=== PATIENT | male | born 1955 | race Caucasian/White ===

== ENCOUNTER 2016-10-17 12:29 | Inpatient (IN) | payer MEDICARE, OTHER ==
--- NOTE | ~2016-10-17 | IDS ---
Interim Discharge Summary [facility] [address] [place]. [address] NAME: NATHALY LOPEZ : 55 STATUS : ADM IN [facility]#: [id number] AGE: 61 ADM/REG DATE : 10/17/16 MR#: [id number] REPORT SERV DATE: 10/27/16 DICTATED BY: JULIA RUIZ DATE: 10/27/16 REPORT STATUS : Draft TRANSCRIBED BY: MODRoni DATE: 10/27/16 ADMISSION DATE: 10/17/2016 DISCHARGE DATE: Date that I assumed care of this patient is 10/22/2016. CONDITION OF THE PATIENT: Stable. The patient is awaiting PT/OT evaluation so that he can be transferred to [facility] whenever bed is available if PT/OT agrees with the patient being in inpatient rehab. DIAGNOSES: So far include the followin. Bilateral lower extremity cellulitis, right leg is worse than left leg. The patient does have open sores in both legs, but has open sores which are worse in the right leg compared to the left leg. The patient also has two small areas of superficial gangrene in the right foot. 2. The patient does have severe PVD in both the legs and has undergone angioplasty in both legs with return of circulation, and there is a good pedal pulse felt in both lower extremities now. 3. Wound culture positive for Pseudomonas aeruginosa from the leg wound for which the patient is on IV cefepime and vancomycin. The patient completes vancomycin day #10 today hence we will stop that. So, the plan is to continue IV cefepime for five more days so that he gets a total of two weeks of coverage for Pseudomonas with IV cefepime. The patient already has a PICC line. 4. Cardiomyopathy, status post AICD/pacer. This is stable. His ejection fraction is 30% and Cardiology has been following him. So far, he is doing well with Bumex 2 mg once a day. Carvedilol 3.125 mg p.o. b.i.d. 5. Paroxysmal atrial fibrillation-the patient is on Coumadin and his Coumadin was recently restarted at his home dose of 5 mg once a day. His most recent INR that I have is 1.5. INR today, 10/27/2016, is pending. 6. Chronic kidney disease, stage 3, which is stable and his baseline creatinine stays around 1.4 to 1.5. 7. Diabetes mellitus-fairly well controlled and blood glucose levels are doing well with the current insulin dose. The patient is on Levemir 20 units subcu q.h.s. and sliding scale insulin level 3 with Accu-Cheks a.c. and h.s. BRIEF HOSPITAL COURSE: During which I have taken care of this patient include the following. The patient is a 61-year-old white male patient, who was admitted with signs and symptoms as diagnosed in his history and physical exam. When I took over care of this patient, the patient was already started on antibiotics for his bilateral severe lower extremity cellulitis with cefepime and vancomycin. Wound cultures were pending. Vascular Surgery had already been consulted and had already performed angioplasty on this gentleman. When I took over care and examined both his legs, he continued to have a good pedal pulse after the procedure in both legs. His right leg cellulitis was worse and has always been than the left leg. The patient continues to have two superficial areas of gangrenous necrosis of the superficial skin and subcutaneous tissue only on the right foot. To know the extent of Interim Discharge Summary [address] [address] NAME: NATHALY LOPEZ : 55 STATUS : ADM IN [facility]#: [id number] AGE: 61 ADM/REG DATE : 10/17/16 MR#: [id number] REPORT SERV DATE: 10/27/16 DICTATED BY: JULIA RUIZ DATE: 10/27/16 REPORT STATUS : Draft TRANSCRIBED BY: SANTANA DATE: 10/27/16 disease in the right foot and leg, I ordered a CT scan of the right foot and leg. The patient cannot have an MRI because he has an AICD/pacer in place that is MRI not compatible. CT scan of the right foot showed soft tissue swelling only and no evidence of any bone involvement or any deep seated abscess at this time luckily. Hence, the plan on this gentleman is to transfer him on to an inpatient rehab at [facility] per his preference whenever bed is available. PT and OT are evaluating him today. As mentioned above, the patient will need IV cefepime for five more days so that he gets a total of two weeks of IV cefepime to cover the Pseudomonas in the lower extremity wounds. This is my discharge summary and my colleague will be taking over care of this patient on 10/28/2016. DAVE/SANTANA Julia Ruiz M.D. / [id number] CC: Rodolfo Lei ERIN
--- NOTE | ~2016-10-17 | OP ---
Record Of Operation [facility] [address] [place]. [address] NAME: NATHALY LOPEZ : 55 STATUS : ADM IN [facility]#: [id number] AGE: 61 ADM/REG DATE : 10/17/16 MR#: [id number] REPORT SERV DATE: 10/20/16 DICTATED BY: SARWAT DARBY DATE: 10/20/16 REPORT STATUS : Draft TRANSCRIBED BY: MODL DATE: 10/20/16 DATE OF PROCEDURE: 10/20/2016 PREOPERATIVE DIAGNOSIS: Peripheral arterial disease with gangrene, right leg. POSTOPERATIVE DIAGNOSIS: Peripheral arterial disease with gangrene, right leg. PROCEDURE: 1. Aortogram with right leg runoff. 2. Angioplasty, right SFA popliteal. 3. Angioplasty, right anterior tibial and peroneal arteries. SURGEON: Sarwat Darby M.D. ANESTHESIA: Local with sedation. COMPLICATIONS: None. BLOOD LOSS: Minimal. HISTORY: The patient is a 61-year-old male with multiple medical issues. He has developed ulcerations from swelling in his lower extremities. This have developed dry gangrene on the right due to poor blood flow. Thought he would benefit from arteriogram with intervention to hopefully improve perfusion and achieve healing. This was discussed in detail with the patient. He expressed understanding and desired to proceed. DESCRIPTION OF PROCEDURE: The patient was taken to the operating room and placed in the supine position. He was given IV sedation without complication. Both groins were prepped and draped in sterile fashion. Ultrasound was used to identify the common femoral artery on the left. Lidocaine 1% was infiltrated in the skin and subcutaneous tissues. Under ultrasound guidance, an 18-gauge needle was placed in the common femoral artery. Wire was passed into the aorta which confirmed with fluoroscopy. The needle was removed. A 5-Citizen Of [place] sheath was placed. UF catheter was passed with the wire into the aorta. Aortogram shows an aortobifemoral bypass graft, which was widely patent. The left renal artery was seen and was patent as well. The right renal artery was not well visualized. Wire was placed in the catheter. Catheter was placed into the distal aortobifemoral limb on the right. Arteriogram here shows a patent limb, patent common femoral and profunda femoral artery. The superficial femoral artery has a stump and then occludes. The profunda femoral artery fills collaterals into the thigh. With significant delay, there was filling of what appears to be the popliteal artery above the knee, which then fills vessels below the knee. The patient was on a heparin drip, which was continued throughout the case. The wire was guided in the profunda femoral artery. The sheath was exchanged for a 6 x 45 sheath, which was in the limb of the aortobifemoral bypass graft. With some effort, a glidewire and 0.035 TrailBlazer catheter were able to cross the occlusion of the SFA popliteal and the select arteriogram through the catheter shows filling of what appears to be the popliteal into multiple collaterals. The wire was left in place and a 4 x 100 balloon used to angioplasty Record Of Operation [place] [id number] [facility] [place]. [address] NAME: NATHALY LOPEZ : 55 STATUS : ADM IN PAT#: [id number] AGE: 61 ADM/REG DATE : 10/17/16 MR#: [id number] REPORT SERV DATE: 10/20/16 DICTATED BY: SARWAT DARBY DATE: 10/20/16 REPORT STATUS : Draft TRANSCRIBED BY: SANTANA DATE: 10/20/16 the length of the SFA popliteal. Prior to this, arteriogram shows a collaterals filling in the tibial vessels, which all three are patent to the ankle. After intervention with a 4-mm balloon, an 0.018 TrailBlazer was passed over an 0.018 wire to the above-knee popliteal artery. Arteriogram showed it to be patent with stenosis. The collaterals fill prominently, however, there was some filling of the below-knee popliteal artery towards the anterior tibial artery. With some efforts and additional imaging, the anterior tibial artery was able to be accessed, which was confirmed with arteriogram through the 0.018 catheter. A 3 x 220 balloon was then used to angioplasty from the origin of the anterior tibial artery into the popliteal artery. The below-knee popliteal artery in anterior tibial origin was angioplastied with a 4-mm balloon. A 5 x 220 mm balloon was used to angioplasty from the knee joint to the SFA origin. Post arteriogram shows resistive flow throughout the SFA popliteal, which was patent. Stenosis was seen in the adductor canal, and this was intervened once again with a 5-mm balloon as was stenosis noted just above the knee joint. Arteriogram with the balloon inflated, shows the below-knee popliteal artery to be patent filling the anterior tibial artery, which was patent and he appears to have spasm. Arteriogram after the repeat intervention shows a stenosis in the popliteal artery above the knee to be resolved as was the stenosis at the adductor canal. Due to no filling in the peroneal, posterior tibial, and tibioperoneal trunk, an 0.018 trailblazer with the help of the wire was guided into the tibioperoneal trunk. Select arteriogram showed the vessel to be patent still. Wire was guided into the peroneal artery and the 3-mm balloon used to angioplasty from the peroneal artery through the tibioperoneal trunk. Post arteriogram now shows a widely patent below-knee popliteal artery with prompt flow through the posterior tibial, peroneal arteries and there was still some flow into the anterior tibial artery as well. With injection through the sheath, there was prompt flow through the popliteal artery above and below the knee and into the tibial vessels, which was a significant improvement as it fills faster than the collaterals. This was felt to be an excellent result. The sheath was removed. Access was closed with StarClose device without difficulty. The patient tolerated the procedure well and was taken to the recovery room and back to his room for continued care. BREE/SANTANA Sarwat Darby M.D. / [id number] CC: MD MARK Gary ERIN
--- NOTE | ~2016-10-17 | DS ---
Discharge Summary [facility] [address] [place]. [address] NAME: NATHALY LOPEZ : 55 STATUS : DIS IN [facility]#: [id number] AGE: 61 ADM/REG DATE : 10/17/16 MR#: [id number] REPORT SERV DATE: 10/31/16 DICTATED BY: TAL GAYTAN DATE: 10/30/16 REPORT STATUS : Draft TRANSCRIBED BY: SANTANA DATE: 10/30/16 ADMISSION DATE: 10/17/2016 DISCHARGE DATE: 10/30/2016 DISCHARGE DIAGNOSES: 1. Severe sepsis. 2. Bilateral lower extremity cellulitis. 3. Severe peripheral vascular disease, status post angioplasty with successful stent placement to the right SFA popliteal and right anterior tibia and peroneal arteries. 4. Ischemic cardiomyopathy status post history of AICD/pacer. 5. Paroxysmal atrial fibrillation, on chronic anticoagulation with Coumadin. 6. Chronic kidney disease stage 3, baseline creatinine between 1.2 to 1.5. 7. Diabetes mellitus type 2. 8. Hypertension. 9. Anasarca. 10.History of recurrent left pleural effusion. 11.Acute decompensated heart failure with reduced EF 30%. 12.History of coronary artery disease, status post history of four-vessel coronary artery bypass graft surgery. 13.Supratherapeutic INR. 14.Acute kidney injury. DISCHARGE CONDITION: Stable. HISTORY OF PRESENT ILLNESS: For detailed HPI, please make reference to Dr. Ismael Weinstein' dictation on 10/15/2016. In brief, this is a 61-year-old male with medical history significant for ischemic cardiomyopathy, status post AICD placement, congestive heart failure, peripheral vascular disease who presented to the emergency department of [facility] with complaints of increased generalized body swelling, sores on the lower extremities, and worsening shortness of breath. In the ER, the patient [place] [address], BNP of 2230, INR of 15, creatinine of 2.16. An assessment of severe sepsis secondary to bilateral lower extremity cellulitis, acute decompensated heart failure with volume overload, acute kidney injury on chronic kidney disease, and supratherapeutic INR was made in the emergency room. The patient was admitted to the Hospitalist Service for further management. HOSPITAL COURSE: Severe sepsis secondary to bilateral lower extremity cellulitis. Blood cultures were obtained. Wound cultures were obtained. The patient was started on broad- spectrum antibiotics. The patient's blood cultures yielded no growth. Wound cultures came back positive for Pseudomonas aeruginosa and Stenotrophomonas maltophilia. The patient's antibiotics were narrowed down based on the sensitivity. The patient received a total of 14 days IV antibiotics therapy during the course of this admission. At the time of discharge, the patient was advised to continue wound care at the skilled nursing facility. Anasarca due to acute decompensated heart failure. The patient received gentle IV diuretics during the course of this admission. The patient's generalized body swelling improved. The Discharge Summary [place] [id number] [facility] [place]. [address] NAME: NATHALY LOPEZ : 55 STATUS : DIS IN [facility]#: [id number] AGE: 61 ADM/REG DATE : 10/17/16 MR#: [id number] REPORT SERV DATE: 10/31/16 DICTATED BY: TAL GAYTAN DATE: 10/30/16 REPORT STATUS : Draft TRANSCRIBED BY: SANTANA DATE: 10/30/16 patient still has some persistent lower extremity swelling. The patient will continue p.o. diuretics and continue followup with primary care physician. Acute kidney injury on chronic kidney disease secondary to prerenal azotemia, present during the evaluation of the patient in the ER, likely related to patient's hypotension on presentation. The patient had gentle IV fluids initially. The patient's creatinine improved. At the time of discharge, the patient's creatinine had returned back to baseline of 1.5. The patient was advised to continue follow up with Nephrology. Supratherapeutic INR. The patient's INR was 15 on presentation. The patient received IV vitamin K. The patient's INR gradually trended down. The patient's warfarin was initially held. When the patient's INR returned back to within therapeutic range, the patient's warfarin was resumed. The patient's INR gradually improved and remained stable at 2.0. The patient was advised to continue warfarin and follow up with INR monitoring at the prison facility. History of paroxysmal atrial fibrillation. The patient had no evidence of RVR throughout the course of this admission. The patient's INR was strictly monitored during the course of this admission. The patient was advised to continue Coreg 3.125 for rate control and warfarin for chronic anticoagulation. Recurrent left pleural effusion noted on presentation. With IV diuretics, left pleural effusion improved. The patient remained stable. The patient's shortness of breath significantly improved. The patient did not undergo thoracentesis during this admission as pleural effusion has remained stable. Previous tap from pleural effusion showed evidence of transudative likely due to acute decompensated heart failure. Diabetes mellitus. The patient's blood sugar was controlled with subcu insulin throughout the course of this admission. At the time of discharge, the patient was advised to continue home dose therapy of insulin as ordered. Severe peripheral arterial disease. Vascular Surgery was consulted during the course of this admission. The patient underwent stent placement as dictated above with good pulse return at the time of discharge. The patient had a palpable pulse post surgery. No significant complication noted after surgery during this admission. DISCHARGE MEDICATIONS: 1. Aspirin 81 mg p.o. daily. 2. Lipitor 40 mg p.o. at bedtime. 3. Kayleigh cream 2 ounce applied to top twice a day. 4. Bumex 2 mg p.o. daily. 5. Coreg 3.125 mg p.o. b.i.d. 6. Insulin glargine 300 units pen 40 units subcu at bedtime. 7. Trazodone 50 mg p.o. at bedtime. 8. Warfarin 5 mg p.o. daily. 9. Humalog 8 units subcu before breakfast. 10.Roxicodone 5 mg p.o. every 4 hours. Discharge Summary [address] [address] NAME: NATHALY LOPEZ : 55 STATUS : DIS IN PAT#: [id number] AGE: 61 ADM/REG DATE : 10/17/16 MR#: [id number] REPORT SERV DATE: 10/31/16 DICTATED BY: TAL GAYTAN DATE: 10/30/16 REPORT STATUS : Draft TRANSCRIBED BY: SANTANA DATE: 10/30/16 11.Lorazepam 0.5 mg p.r.n. 12.Atrovent 2.5 mg one inhaler nebs 4 times p.r.n. 13.Albuterol 0.083% p.r.n. DISCHARGE ACTIVITY: As tolerated. DISCHARGE DISPOSITION: To prison facility at [place]. FOLLOWUP: 1. Follow up with primary care physician within one to two weeks of discharge. 2. Continue followup with Nephrology. 3. Continue followup with Cardiology within three to four weeks of discharge. Greater than 35 minutes was used to prepare this patient's discharge, reconcile medication, advise the patient on discharge plans and followup. IOO/WILLIL Tal Gaytan MD / [id number] CC: MD Lyn Gary
[~2016-10-17 12:29] MED LIST: ADVAIR230P INH; ALBUTEROL0.083 % INH; ASAB PO; ATROVENTUD; ATROVENTUD INH; ATV.5 PO; BUM1 PO; BUM2 PO; C25 PO; C5; C5 PO; CIP5 PO; COREG3 PO; COREG6 PO; COUMADIN10 MG; COUMADIN10 MG PO; COUMADIN4 MG PO; COUMADIN7.5 MG PO; DIABET2.5 PO; DIABETA5 PO; DUONEB INH; FLOMAX4 PO; GLUCXL2.5 PO; HUMALOG; HUMALOG SC; HUMALOG SQ; HUMALOGPEN SC; I40 PO; IMDUR30 PO; ISOSORB DIN30 MG PO; K-TABS10 MEQ PO; KDUR10 PO; KDUR20 PO; L20 PO; L40 PO; L80 PO; LEVEMIR SC; LIPITOR40 PO; LOFIB160 PO; LOFIBRA134 MG PO; LOTE10 PO; LOTE5 PO; LOVENOX60 SC; MAGOX4 PO; MULTIVITAMI1 PO; MVI PO; NOVOLOGMIX SC; OXYCOD PO; P10 PO; PCET PO; PLAVIX PO; PRAVAC PO; PRAVACHOL40 MG PO; PRILO PO; PROAIR HFA INH; PROSTAT PO; SPIRO25 PO; SPIRO50 PO; SYMBICORT 160/41 INH INH; TOUJEO; TOUJEO SC; TOUJEO SQ; TRAZ50 PO; TRILIPIX135 MG; TRILIPIX135 MG PO; VITAMIN C100 M1 PO; VITC500 PO; ZINC220C PO
[2016-10-17 15:28] LABS: BASOPHILS 0.1 %; BASOPHILS ABSOLUTE 0.02 10/3/uL (0.0-0.16); EOSINOPHILS 0.2 %; EOSINOPHILS ABSOLUTE 0.03 10/3/uL (0.0-0.53); HEMOGLOBIN 11.1 g/dL (13.6-17.8); IMMATURE GRANULOCYTES 3.5 %; IMMATURE GRANULOCYTES ABSOLUTE 0.57 10/3/uL (0.0-0.11); LYMPHOCYTES 5.3 %; LYMPHOCYTES ABSOLUTE 0.86 10/3/uL (0.67-4.30); MANUAL DIFF NO %; MEAN CORPUS HGB CONC 32.6 g/dL (32.0-36.0); MEAN CORPUSCULAR HEMOGLOB 25.7 pg (26.0-34.0); MEAN CORPUSCULAR VOLUME 78.7 fL (80-100); MEAN PLATELET VOLUME 8.8 fL (9.2-13.0); MONOCYTES 4.8 %; MONOCYTES ABSOLUTE 0.79 10/3/uL (0.21-1.20); NEUTROPHILS 86.1 %; NEUTROPHILS ABSOLUTE 14.06 10/3/uL (2.02-8.40); PLATELET COUNT 116 10/3/uL (150-400); RBC DISTRIBUTION WIDTH 16.8 % (12.0-16.0); RED CELL COUNT 4.32 10/6/uL (4.7-6.1); WHITE BLOOD CELLS 16.3 10/3/uL (4.5-10.5)
[2016-10-17 15:35] LABS: INTERNATIONAL NORMAL RATI 3.4 UNITS (-); PARTIAL THROMBO TIME 38.6 SEC (22.5-37.2); PROTIME (NOT ORD) 34.3 SEC (12.0-14.5)
[2016-10-17 15:41] LABS: BUN (BLOOD UREA NITROGEN) 72 MG/DL (6-23); CALCIUM, SERUM 7.9 MG/DL (8.5-10.4); CHLORIDE, SERUM 100 MMOL/L (96-112); CO2 (CARBON DIOXIDE) 30 MMOL/L (24-34); GFR AFRICAN AMERICAN 43 ML/MIN (>=60); GFR NON AFRICAN AMERICAN 37 ML/MIN (>=60); PHOSPHORUS, SERUM 3.4 MG/DL (2.5-4.5); POTASSIUM, SERUM 3.9 MMOL/L (3.5-5.3); SGOT(AST) 12 U/L (5-40); SGPT(ALT) 12 U/L (5-65); SODIUM, SERUM 138 MMOL/L (135-148); TOTAL BILIRUBIN 1.1 MG/DL (0-1.2); TOTAL PROTEIN 5.2 G/DL (6.0-8.5)
[2016-10-17 15:42] LABS: A/G RATIO 0.7 (0.7-1.9); ALBUMIN 2.1 G/DL (3.5-5.0); ALKALINE PHOSPHATASE 164 U/L (45-117); GLOBULIN 3.1 G/DL (2.5-4.1); GLUCOSE, SERUM 52 MG/DL (60-99)
[2016-10-17 15:58] LABS: ANISOCYTOSIS 1+ (5-10/OIF) (0-5/OIF); BAND NEUTROPHILS 6 %; BURR CELLS 1+ (3-10/OIF) (0-2/OIF); HYPOCHROMIA 1+ (3-10/OIF) (0-2/OIF); LYMPHOCYTES 3 %; LYMPHOCYTES ABSOLUTE (CALC) 0.49 10/3/uL (0.67-4.30); NEUTROPHILS ABSOLUTE (CALC) 15.81 10/3/uL (2.02-8.40); PLATELET ESTIMATE SLT DEC (ADEQUATE); SEGMENTED NEUTROPHIL (0) 91 %; TOTAL NUCLEATED CELLS 100
[2016-10-17 15:59] LABS: MACROCYTES 1+ (5-10/OIF) (0-5/OIF); MICROCYTES 1+ (5-10/OIF) (0-5/OIF); OVALOCYTES 1+ (3-10/OIF) (0-2/OIF); TEARDROP SHAPED RBCS OCC (0-2/OIF)
[2016-10-17 16:06] LABS: PROCALCITONIN 2.27 ng/mL (<0.5)
[2016-10-18 04:57] LABS: HEMATOCRIT 37.1 % (40.0-51.0); HEMOGLOBIN 12.1 g/dL (13.6-17.8); MEAN CORPUS HGB CONC 32.6 g/dL (32.0-36.0); MEAN CORPUSCULAR HEMOGLOB 25.9 pg (26.0-34.0); MEAN CORPUSCULAR VOLUME 79.4 fL (80-100); MEAN PLATELET VOLUME 8.7 fL (9.2-13.0); PLATELET COUNT 137 10/3/uL (150-400); RED CELL COUNT 4.67 10/6/uL (4.7-6.1); WHITE BLOOD CELLS 16.7 10/3/uL (4.5-10.5)
[2016-10-18 05:01] LABS: MANUAL DIFF YES %
[2016-10-18 05:18] LABS: A/G RATIO 0.5 (0.7-1.9); ALBUMIN 1.7 G/DL (3.5-5.0); CHLORIDE, SERUM 102 MMOL/L (96-112); CO2 (CARBON DIOXIDE) 29 MMOL/L (24-34); GFR AFRICAN AMERICAN 49 ML/MIN (>=60); GFR NON AFRICAN AMERICAN 43 ML/MIN (>=60); GLOBULIN 3.2 G/DL (2.5-4.1); PHOSPHORUS, SERUM 3.3 MG/DL (2.5-4.5); SGOT(AST) 11 U/L (5-40); SGPT(ALT) 10 U/L (5-65); SODIUM, SERUM 141 MMOL/L (135-148); TOTAL BILIRUBIN 1.1 MG/DL (0-1.2); TOTAL PROTEIN 4.9 G/DL (6.0-8.5)
[2016-10-18 05:27] LABS: ANISOCYTOSIS 1+ (5-10/OIF) (0-5/OIF); BAND NEUTROPHILS 2 %; IMMATURE GRANS ABSOLUTE (CALC) 0.33 10/3/uL (0.0-0.11); LYMPHOCYTES 4 %; LYMPHOCYTES ABSOLUTE (CALC) 0.67 10/3/uL (0.67-4.30); METAMYELOCYTES 2 %; PLATELET ESTIMATE SLT DEC (ADEQUATE); SEGMENTED NEUTROPHIL (0) 92 %; TOTAL NUCLEATED CELLS 100
[2016-10-18 05:28] LABS: ALKALINE PHOSPHATASE 185 U/L (45-117); BUN (BLOOD UREA NITROGEN) 65 MG/DL (6-23); GLUCOSE, SERUM 94 MG/DL (60-99)
[2016-10-18 14:34] LABS: INTERNATIONAL NORMAL RATI 3.9 UNITS (-); PARTIAL THROMBO TIME 53.5 SEC (22.5-37.2); PROTIME (NOT ORD) 37.7 SEC (12.0-14.5)
[2016-10-19 04:36] LABS: HEMOGLOBIN 11.9 g/dL (13.6-17.8); MEAN CORPUS HGB CONC 33.1 g/dL (32.0-36.0); MEAN CORPUSCULAR HEMOGLOB 26.3 pg (26.0-34.0); MEAN CORPUSCULAR VOLUME 79.5 fL (80-100); MEAN PLATELET VOLUME 8.8 fL (9.2-13.0); PLATELET COUNT 159 10/3/uL (150-400); RBC DISTRIBUTION WIDTH 16.8 % (12.0-16.0); RED CELL COUNT 4.53 10/6/uL (4.7-6.1); WHITE BLOOD CELLS 18.5 10/3/uL (4.5-10.5)
[2016-10-19 04:37] LABS: MANUAL DIFF YES %
[2016-10-19 05:03] LABS: ANISOCYTOSIS 1+ (5-10/OIF) (0-5/OIF); EOSINOPHILS 1 %; EOSINOPHILS ABSOLUTE (CALC) 0.19 10/3/uL (0.0-0.53); IMMATURE GRANS ABSOLUTE (CALC) 0.37 10/3/uL (0.0-0.11); LYMPHOCYTES 8 %; LYMPHOCYTES ABSOLUTE (CALC) 1.48 10/3/uL (0.67-4.30); MICROCYTES 1+ (5-10/OIF) (0-5/OIF); MONOCYTES 3 %; MONOCYTES ABSOLUTE (CALC) 0.56 10/3/uL (0.21-1.20); MYELOCYTES 2 %; NEUTROPHILS ABSOLUTE (CALC) 15.91 10/3/uL (2.02-8.40); SEGMENTED NEUTROPHIL (0) 86 %; TOTAL NUCLEATED CELLS 100
[2016-10-19 05:04] LABS: PLATELET ESTIMATE ADQ (ADEQUATE); RBC MORPHOLOGY ABN (NORMAL)
[2016-10-19 07:05] LABS: CHLORIDE, SERUM 110 MMOL/L (96-112); PHOSPHORUS, SERUM 2.6 MG/DL (2.5-4.5); SODIUM, SERUM 144 MMOL/L (135-148)
[2016-10-19 07:06] LABS: ALBUMIN 1.1 G/DL (3.5-5.0); BUN (BLOOD UREA NITROGEN) 51 MG/DL (6-23); CALCIUM, SERUM 6.3 MG/DL (8.5-10.4); CO2 (CARBON DIOXIDE) 23 MMOL/L (24-34); CREATININE 1.06 MG/DL (0.70-1.30); GFR AFRICAN AMERICAN 87 ML/MIN (>=60); GFR NON AFRICAN AMERICAN 75 ML/MIN (>=60); GLUCOSE, SERUM 134 MG/DL (60-99); POTASSIUM, SERUM 3.1 MMOL/L (3.5-5.3)
[2016-10-19 17:27] LABS: CREATININE, URINE 98.1 MG/DL
[2016-10-20 04:57] LABS: HEMOGLOBIN 11.2 g/dL (13.6-17.8); MEAN CORPUS HGB CONC 32.9 g/dL (32.0-36.0); MEAN CORPUSCULAR HEMOGLOB 25.9 pg (26.0-34.0); MEAN CORPUSCULAR VOLUME 78.7 fL (80-100); MEAN PLATELET VOLUME 8.4 fL (9.2-13.0); PLATELET COUNT 134 10/3/uL (150-400); RBC DISTRIBUTION WIDTH 16.9 % (12.0-16.0); RED CELL COUNT 4.32 10/6/uL (4.7-6.1); WHITE BLOOD CELLS 13.4 10/3/uL (4.5-10.5)
[2016-10-20 05:03] LABS: INTERNATIONAL NORMAL RATI 3.4 UNITS (-); PROTIME (NOT ORD) 33.7 SEC (12.0-14.5)
[2016-10-20 05:16] LABS: ALKALINE PHOSPHATASE 185 U/L (45-117); INDIRECT BILIRUBIN(NOT ORDER) 0.5 MG/DL (0.1-0.9); SGOT(AST) 14 U/L (5-40); SGPT(ALT) 15 U/L (5-65); TOTAL BILIRUBIN 0.9 MG/DL (0-1.2); TOTAL PROTEIN 5.1 G/DL (6.0-8.5)
[2016-10-20 05:19] LABS: DIRECT BILIRUBIN 0.4 MG/DL (0.0-0.4)
[2016-10-20 05:23] LABS: MANUAL DIFF YES %
[2016-10-20 05:44] LABS: BAND NEUTROPHILS 2 %; EOSINOPHILS 1 %; EOSINOPHILS ABSOLUTE (CALC) 0.13 10/3/uL (0.0-0.53); LYMPHOCYTES 10 %; LYMPHOCYTES ABSOLUTE (CALC) 1.34 10/3/uL (0.67-4.30); METAMYELOCYTES 1 %; MONOCYTES 2 %; MONOCYTES ABSOLUTE (CALC) 0.27 10/3/uL (0.21-1.20); MYELOCYTES 2 %; NEUTROPHILS ABSOLUTE (CALC) 11.26 10/3/uL (2.02-8.40); PLATELET ESTIMATE SLT DEC (ADEQUATE); SEGMENTED NEUTROPHIL (0) 82 %; TOTAL NUCLEATED CELLS 100
[2016-10-20 05:45] LABS: ANISOCYTOSIS 1+ (5-10/OIF) (0-5/OIF); RBC MORPHOLOGY ABN (NORMAL)
[2016-10-20 11:01] LABS: BUN (BLOOD UREA NITROGEN) 59 MG/DL (6-23); CALCIUM, SERUM 8.3 MG/DL (8.5-10.4); CHLORIDE, SERUM 101 MMOL/L (96-112); CO2 (CARBON DIOXIDE) 27 MMOL/L (24-34); CREATININE 1.31 MG/DL (0.70-1.30); GFR AFRICAN AMERICAN 68 ML/MIN (>=60); GFR NON AFRICAN AMERICAN 58 ML/MIN (>=60); GLUCOSE, SERUM 83 MG/DL (60-99); PHOSPHORUS, SERUM 2.5 MG/DL (2.5-4.5); POTASSIUM, SERUM 4.1 MMOL/L (3.5-5.3); SODIUM, SERUM 138 MMOL/L (135-148)
[2016-10-21 04:00] LABS: HEMOGLOBIN 9.1 g/dL (13.6-17.8); MEAN CORPUS HGB CONC 31.8 g/dL (32.0-36.0); MEAN CORPUSCULAR HEMOGLOB 25.7 pg (26.0-34.0); MEAN CORPUSCULAR VOLUME 80.8 fL (80-100); MEAN PLATELET VOLUME 8.4 fL (9.2-13.0); PLATELET COUNT 100 10/3/uL (150-400); RED CELL COUNT 3.54 10/6/uL (4.7-6.1); WHITE BLOOD CELLS 10.9 10/3/uL (4.5-10.5)
[2016-10-21 04:01] LABS: HEMATOCRIT 28.6 % (40.0-51.0); MANUAL DIFF YES %
[2016-10-21 04:14] LABS: INTERNATIONAL NORMAL RATI 4.8 UNITS (-)
[2016-10-21 04:15] LABS: CO2 (CARBON DIOXIDE) 24 MMOL/L (24-34); CREATININE 1.04 MG/DL (0.70-1.30); GFR AFRICAN AMERICAN 89 ML/MIN (>=60); GFR NON AFRICAN AMERICAN 77 ML/MIN (>=60); PROTIME (NOT ORD) 44.6 SEC (12.0-14.5)
[2016-10-21 04:16] LABS: PARTIAL THROMBO TIME > 150.0 SEC (22.5-37.2)
[2016-10-21 04:17] LABS: ALBUMIN 1.2 G/DL (3.5-5.0); BUN (BLOOD UREA NITROGEN) 42 MG/DL (6-23); CALCIUM, SERUM 6.2 MG/DL (8.5-10.4); CHLORIDE, SERUM 90 MMOL/L (96-112); GLUCOSE, SERUM 272 MG/DL (60-99); PHOSPHORUS, SERUM 4.1 MG/DL (2.5-4.5); POTASSIUM, SERUM 2.9 MMOL/L (3.5-5.3); SODIUM, SERUM 127 MMOL/L (135-148)
[2016-10-21 04:22] LABS: ANISOCYTOSIS 1+ (5-10/OIF) (0-5/OIF); BAND NEUTROPHILS 1 %; EOSINOPHILS 1 %; EOSINOPHILS ABSOLUTE (CALC) 0.11 10/3/uL (0.0-0.53); HYPOCHROMIA 1+ (3-10/OIF) (0-2/OIF); LYMPHOCYTES 1 %; LYMPHOCYTES ABSOLUTE (CALC) 0.11 10/3/uL (0.67-4.30); MONOCYTES 3 %; MONOCYTES ABSOLUTE (CALC) 0.33 10/3/uL (0.21-1.20); NEUTROPHILS ABSOLUTE (CALC) 10.36 10/3/uL (2.02-8.40); PLATELET ESTIMATE SLT DEC (ADEQUATE); SEGMENTED NEUTROPHIL (0) 94 %; TOTAL NUCLEATED CELLS 100
[2016-10-22 05:25] LABS: BASOPHILS 0.1 %; BASOPHILS ABSOLUTE 0.02 10/3/uL (0.0-0.16); EOSINOPHILS 1.1 %; EOSINOPHILS ABSOLUTE 0.17 10/3/uL (0.0-0.53); HEMATOCRIT 33.5 % (40.0-51.0); HEMOGLOBIN 10.8 g/dL (13.6-17.8); IMMATURE GRANULOCYTES 1.9 %; LYMPHOCYTES 5.9 %; LYMPHOCYTES ABSOLUTE 0.92 10/3/uL (0.67-4.30); MANUAL DIFF NO %; MEAN CORPUS HGB CONC 32.2 g/dL (32.0-36.0); MEAN CORPUSCULAR HEMOGLOB 25.8 pg (26.0-34.0); MEAN CORPUSCULAR VOLUME 80.1 fL (80-100); MEAN PLATELET VOLUME 8.9 fL (9.2-13.0); MONOCYTES 4.8 %; MONOCYTES ABSOLUTE 0.74 10/3/uL (0.21-1.20); NEUTROPHILS 86.2 %; NEUTROPHILS ABSOLUTE 13.38 10/3/uL (2.02-8.40); PLATELET COUNT 128 10/3/uL (150-400); RED CELL COUNT 4.18 10/6/uL (4.7-6.1); WHITE BLOOD CELLS 15.5 10/3/uL (4.5-10.5)
[2016-10-22 05:39] LABS: INTERNATIONAL NORMAL RATI 1.8 UNITS (-)
[2016-10-22 05:40] LABS: PROTIME (NOT ORD) 20.3 SEC (12.0-14.5)
[2016-10-22 05:53] LABS: CO2 (CARBON DIOXIDE) 28 MMOL/L (24-34); GFR AFRICAN AMERICAN 68 ML/MIN (>=60); GFR NON AFRICAN AMERICAN 59 ML/MIN (>=60); GLUCOSE, SERUM 231 MG/DL (60-99); POTASSIUM, SERUM 4.5 MMOL/L (3.5-5.3)
[2016-10-22 05:58] LABS: BUN (BLOOD UREA NITROGEN) 53 MG/DL (6-23); CALCIUM, SERUM 7.5 MG/DL (8.5-10.4); CHLORIDE, SERUM 100 MMOL/L (96-112); SODIUM, SERUM 135 MMOL/L (135-148)
[2016-10-22 07:53] LABS: PHOSPHORUS, SERUM 1.7 MG/DL (2.5-4.5)
[2016-10-23 03:27] LABS: HEMATOCRIT 32.8 % (40.0-51.0); HEMOGLOBIN 10.6 g/dL (13.6-17.8); MANUAL DIFF YES %; MEAN CORPUS HGB CONC 32.3 g/dL (32.0-36.0); MEAN CORPUSCULAR HEMOGLOB 25.7 pg (26.0-34.0); MEAN CORPUSCULAR VOLUME 79.6 fL (80-100); MEAN PLATELET VOLUME 8.8 fL (9.2-13.0); PLATELET COUNT 141 10/3/uL (150-400); RBC DISTRIBUTION WIDTH 17.1 % (12.0-16.0); RED CELL COUNT 4.12 10/6/uL (4.7-6.1); WHITE BLOOD CELLS 14.5 10/3/uL (4.5-10.5)
[2016-10-23 03:29] LABS: INTERNATIONAL NORMAL RATI 1.5 UNITS (-); PROTIME (NOT ORD) 17.9 SEC (12.0-14.5)
[2016-10-23 03:43] LABS: BUN (BLOOD UREA NITROGEN) 54 MG/DL (6-23); CALCIUM, SERUM 7.6 MG/DL (8.5-10.4); CHLORIDE, SERUM 102 MMOL/L (96-112); CO2 (CARBON DIOXIDE) 32 MMOL/L (24-34); GFR AFRICAN AMERICAN 75 ML/MIN (>=60); GFR NON AFRICAN AMERICAN 65 ML/MIN (>=60); POTASSIUM, SERUM 4.4 MMOL/L (3.5-5.3); SODIUM, SERUM 140 MMOL/L (135-148)
[2016-10-23 03:44] LABS: GLUCOSE, SERUM 152 MG/DL (60-99)
[2016-10-23 03:45] LABS: ANISOCYTOSIS 1+ (5-10/OIF) (0-5/OIF); EOSINOPHILS 2 %; EOSINOPHILS ABSOLUTE (CALC) 0.29 10/3/uL (0.0-0.53); IMMATURE GRANS ABSOLUTE (CALC) 0.29 10/3/uL (0.0-0.11); LYMPHOCYTES 6 %; LYMPHOCYTES ABSOLUTE (CALC) 0.87 10/3/uL (0.67-4.30); METAMYELOCYTES 1 %; MICROCYTES 1+ (5-10/OIF) (0-5/OIF); MYELOCYTES 1 %; NEUTROPHILS ABSOLUTE (CALC) 13.05 10/3/uL (2.02-8.40); PLATELET ESTIMATE ADQ (ADEQUATE); RBC MORPHOLOGY ABN (NORMAL); SEGMENTED NEUTROPHIL (0) 90 %; TOTAL NUCLEATED CELLS 100
[2016-10-23 04:49] LABS: VANCOMYCIN TROUGH 16.6 MCG/ML (10.0-20.0)
[2016-10-24 06:57] LABS: BASOPHILS 0.2 %; BASOPHILS ABSOLUTE 0.02 10/3/uL (0.0-0.16); EOSINOPHILS 2.9 %; EOSINOPHILS ABSOLUTE 0.33 10/3/uL (0.0-0.53); HEMATOCRIT 34.6 % (40.0-51.0); HEMOGLOBIN 11.1 g/dL (13.6-17.8); IMMATURE GRANULOCYTES 2.2 %; IMMATURE GRANULOCYTES ABSOLUTE 0.25 10/3/uL (0.0-0.11); LYMPHOCYTES 9.1 %; LYMPHOCYTES ABSOLUTE 1.05 10/3/uL (0.67-4.30); MEAN CORPUS HGB CONC 32.1 g/dL (32.0-36.0); MEAN PLATELET VOLUME 8.9 fL (9.2-13.0); MONOCYTES 6.3 %; MONOCYTES ABSOLUTE 0.72 10/3/uL (0.21-1.20); NEUTROPHILS 79.3 %; NEUTROPHILS ABSOLUTE 9.15 10/3/uL (2.02-8.40); PLATELET COUNT 160 10/3/uL (150-400); RBC DISTRIBUTION WIDTH 17.4 % (12.0-16.0); RED CELL COUNT 4.27 10/6/uL (4.7-6.1); WHITE BLOOD CELLS 11.5 10/3/uL (4.5-10.5)
[2016-10-24 07:01] LABS: MANUAL DIFF NO %
[2016-10-24 07:08] LABS: CALCIUM, SERUM 7.8 MG/DL (8.5-10.4); CHLORIDE, SERUM 99 MMOL/L (96-112); CO2 (CARBON DIOXIDE) 31 MMOL/L (24-34); CREATININE 1.33 MG/DL (0.70-1.30); GFR AFRICAN AMERICAN 66 ML/MIN (>=60); GFR NON AFRICAN AMERICAN 57 ML/MIN (>=60); GLUCOSE, SERUM 132 MG/DL (60-99); POTASSIUM, SERUM 4.4 MMOL/L (3.5-5.3); SODIUM, SERUM 136 MMOL/L (135-148)
[2016-10-24 07:09] LABS: BUN (BLOOD UREA NITROGEN) 49 MG/DL (6-23)
[2016-10-24 07:11] LABS: INTERNATIONAL NORMAL RATI 1.5 UNITS (-); PROTIME (NOT ORD) 18.2 SEC (12.0-14.5)
[2016-10-25 09:10] LABS: INTERNATIONAL NORMAL RATI 1.6 UNITS (-); PROTIME (NOT ORD) 19.3 SEC (12.0-14.5)
[2016-10-26 05:13] LABS: HEMATOCRIT 32.7 % (40.0-51.0); HEMOGLOBIN 10.5 g/dL (13.6-17.8); MEAN CORPUS HGB CONC 32.1 g/dL (32.0-36.0); MEAN CORPUSCULAR HEMOGLOB 26.2 pg (26.0-34.0); MEAN CORPUSCULAR VOLUME 81.5 fL (80-100); MEAN PLATELET VOLUME 8.6 fL (9.2-13.0); PLATELET COUNT 168 10/3/uL (150-400); RBC DISTRIBUTION WIDTH 17.7 % (12.0-16.0); RED CELL COUNT 4.01 10/6/uL (4.7-6.1); WHITE BLOOD CELLS 9.5 10/3/uL (4.5-10.5)
[2016-10-26 05:17] LABS: INTERNATIONAL NORMAL RATI 1.5 UNITS (-); PROTIME (NOT ORD) 18.4 SEC (12.0-14.5)
[2016-10-26 05:18] LABS: MANUAL DIFF YES %
[2016-10-26 05:30] LABS: CALCIUM, SERUM 7.9 MG/DL (8.5-10.4); CHLORIDE, SERUM 102 MMOL/L (96-112); CO2 (CARBON DIOXIDE) 30 MMOL/L (24-34); CREATININE 1.53 MG/DL (0.70-1.30); GFR AFRICAN AMERICAN 56 ML/MIN (>=60); GFR NON AFRICAN AMERICAN 48 ML/MIN (>=60); GLUCOSE, SERUM 150 MG/DL (60-99); POTASSIUM, SERUM 4.5 MMOL/L (3.5-5.3); SODIUM, SERUM 136 MMOL/L (135-148); VANCOMYCIN TROUGH 23.1 MCG/ML (10.0-20.0)
[2016-10-26 05:31] LABS: BUN (BLOOD UREA NITROGEN) 55 MG/DL (6-23)
[2016-10-26 05:53] LABS: BAND NEUTROPHILS 1 %; BASOPHILS 2 %; BASOPHILS ABSOLUTE (CALC) 0.19 10/3/uL (0.0-0.16); EOSINOPHILS 2 %; EOSINOPHILS ABSOLUTE (CALC) 0.19 10/3/uL (0.0-0.53); LYMPHOCYTES 13 %; LYMPHOCYTES ABSOLUTE (CALC) 1.24 10/3/uL (0.67-4.30); MONOCYTES 1 %; NEUTROPHILS ABSOLUTE (CALC) 7.79 10/3/uL (2.02-8.40); SEGMENTED NEUTROPHIL (0) 81 %; TOTAL NUCLEATED CELLS 100
[2016-10-26 05:54] LABS: ANISOCYTOSIS 1+ (5-10/OIF) (0-5/OIF); BURR CELLS 1+ (3-10/OIF) (0-2/OIF); PLATELET ESTIMATE ADQ (ADEQUATE)
[2016-10-27 05:24] LABS: HEMATOCRIT 30.8 % (40.0-51.0); HEMOGLOBIN 10.1 g/dL (13.6-17.8); MEAN CORPUS HGB CONC 32.8 g/dL (32.0-36.0); MEAN CORPUSCULAR HEMOGLOB 26.2 pg (26.0-34.0); MEAN CORPUSCULAR VOLUME 79.8 fL (80-100); MEAN PLATELET VOLUME 8.8 fL (9.2-13.0); PLATELET COUNT 176 10/3/uL (150-400); RBC DISTRIBUTION WIDTH 18.2 % (12.0-16.0); RED CELL COUNT 3.86 10/6/uL (4.7-6.1)
[2016-10-27 05:27] LABS: MANUAL DIFF YES %
[2016-10-27 05:27] LABS: BUN (BLOOD UREA NITROGEN) 60 MG/DL (6-23); CHLORIDE, SERUM 103 MMOL/L (96-112); CO2 (CARBON DIOXIDE) 29 MMOL/L (24-34); GFR AFRICAN AMERICAN 62 ML/MIN (>=60); GFR NON AFRICAN AMERICAN 54 ML/MIN (>=60); GLUCOSE, SERUM 90 MG/DL (60-99); POTASSIUM, SERUM 4.3 MMOL/L (3.5-5.3); SODIUM, SERUM 136 MMOL/L (135-148)
[2016-10-27 05:47] LABS: ANISOCYTOSIS 1+ (5-10/OIF) (0-5/OIF); BAND NEUTROPHILS 2 %; EOSINOPHILS 2 %; LYMPHOCYTES 8 %; MONOCYTES 8 %; PLATELET ESTIMATE ADQ (ADEQUATE); RBC MORPHOLOGY ABN (NORMAL); SEGMENTED NEUTROPHIL (0) 80 %; TOTAL NUCLEATED CELLS 100
[2016-10-28 05:20] LABS: BASOPHILS 0.4 %; BASOPHILS ABSOLUTE 0.03 10/3/uL (0.0-0.16); EOSINOPHILS 3.1 %; EOSINOPHILS ABSOLUTE 0.24 10/3/uL (0.0-0.53); HEMOGLOBIN 11.4 g/dL (13.6-17.8); IMMATURE GRANULOCYTES 0.9 %; IMMATURE GRANULOCYTES ABSOLUTE 0.07 10/3/uL (0.0-0.11); LYMPHOCYTES 12.3 %; LYMPHOCYTES ABSOLUTE 0.96 10/3/uL (0.67-4.30); MEAN CORPUSCULAR HEMOGLOB 26.2 pg (26.0-34.0); MEAN CORPUSCULAR VOLUME 81.8 fL (80-100); MONOCYTES 6.5 %; MONOCYTES ABSOLUTE 0.51 10/3/uL (0.21-1.20); NEUTROPHILS 76.8 %; NEUTROPHILS ABSOLUTE 5.98 10/3/uL (2.02-8.40); PLATELET COUNT 144 10/3/uL (150-400); RBC DISTRIBUTION WIDTH 18.7 % (12.0-16.0); RED CELL COUNT 4.35 10/6/uL (4.7-6.1); WHITE BLOOD CELLS 7.8 10/3/uL (4.5-10.5)
[2016-10-28 05:21] LABS: HEMATOCRIT 35.6 % (40.0-51.0); MANUAL DIFF NO %
[2016-10-28 05:30] LABS: BUN (BLOOD UREA NITROGEN) 59 MG/DL (6-23); CALCIUM, SERUM 8.4 MG/DL (8.5-10.4); CHLORIDE, SERUM 103 MMOL/L (96-112); CO2 (CARBON DIOXIDE) 30 MMOL/L (24-34); CREATININE 1.27 MG/DL (0.70-1.30); GFR AFRICAN AMERICAN 70 ML/MIN (>=60); GFR NON AFRICAN AMERICAN 61 ML/MIN (>=60); GLUCOSE, SERUM 99 MG/DL (60-99); POTASSIUM, SERUM 4.4 MMOL/L (3.5-5.3); SODIUM, SERUM 137 MMOL/L (135-148)
[2016-10-28 05:34] LABS: INTERNATIONAL NORMAL RATI 1.5 UNITS (-)
[2016-10-29 05:01] LABS: BASOPHILS 0.3 %; BASOPHILS ABSOLUTE 0.03 10/3/uL (0.0-0.16); EOSINOPHILS 3.5 %; EOSINOPHILS ABSOLUTE 0.31 10/3/uL (0.0-0.53); HEMATOCRIT 32.3 % (40.0-51.0); HEMOGLOBIN 10.1 g/dL (13.6-17.8); IMMATURE GRANULOCYTES 0.8 %; IMMATURE GRANULOCYTES ABSOLUTE 0.07 10/3/uL (0.0-0.11); LYMPHOCYTES 11.1 %; LYMPHOCYTES ABSOLUTE 0.97 10/3/uL (0.67-4.30); MEAN CORPUS HGB CONC 31.3 g/dL (32.0-36.0); MEAN CORPUSCULAR HEMOGLOB 25.8 pg (26.0-34.0); MEAN CORPUSCULAR VOLUME 82.6 fL (80-100); MEAN PLATELET VOLUME 8.9 fL (9.2-13.0); MONOCYTES 7.5 %; MONOCYTES ABSOLUTE 0.66 10/3/uL (0.21-1.20); NEUTROPHILS 76.8 %; NEUTROPHILS ABSOLUTE 6.73 10/3/uL (2.02-8.40); PLATELET COUNT 156 10/3/uL (150-400); RBC DISTRIBUTION WIDTH 18.8 % (12.0-16.0); RED CELL COUNT 3.91 10/6/uL (4.7-6.1); WHITE BLOOD CELLS 8.8 10/3/uL (4.5-10.5)
[2016-10-29 05:02] LABS: MANUAL DIFF NO %
[2016-10-29 05:18] LABS: BUN (BLOOD UREA NITROGEN) 60 MG/DL (6-23); CALCIUM, SERUM 8.4 MG/DL (8.5-10.4); CHLORIDE, SERUM 106 MMOL/L (96-112); CO2 (CARBON DIOXIDE) 28 MMOL/L (24-34); GFR AFRICAN AMERICAN 68 ML/MIN (>=60); GFR NON AFRICAN AMERICAN 59 ML/MIN (>=60); POTASSIUM, SERUM 4.1 MMOL/L (3.5-5.3); SODIUM, SERUM 141 MMOL/L (135-148)
[2016-10-29 05:19] LABS: ALBUMIN 1.6 G/DL (3.5-5.0); GLUCOSE, SERUM 126 MG/DL (60-99); PHOSPHORUS, SERUM 2.8 MG/DL (2.5-4.5)
[2016-10-29 06:46] LABS: INTERNATIONAL NORMAL RATI 1.5 UNITS (-)
[2016-10-30 04:38] LABS: BASOPHILS 0.5 %; BASOPHILS ABSOLUTE 0.04 10/3/uL (0.0-0.16); EOSINOPHILS 3.3 %; EOSINOPHILS ABSOLUTE 0.24 10/3/uL (0.0-0.53); HEMATOCRIT 31.4 % (40.0-51.0); HEMOGLOBIN 9.9 g/dL (13.6-17.8); IMMATURE GRANULOCYTES 0.8 %; IMMATURE GRANULOCYTES ABSOLUTE 0.06 10/3/uL (0.0-0.11); LYMPHOCYTES 9.3 %; LYMPHOCYTES ABSOLUTE 0.68 10/3/uL (0.67-4.30); MEAN CORPUS HGB CONC 31.5 g/dL (32.0-36.0); MEAN CORPUSCULAR HEMOGLOB 26.2 pg (26.0-34.0); MEAN CORPUSCULAR VOLUME 83.1 fL (80-100); MEAN PLATELET VOLUME 8.6 fL (9.2-13.0); MONOCYTES 6.7 %; MONOCYTES ABSOLUTE 0.49 10/3/uL (0.21-1.20); NEUTROPHILS 79.4 %; NEUTROPHILS ABSOLUTE 5.81 10/3/uL (2.02-8.40); PLATELET COUNT 132 10/3/uL (150-400); RBC DISTRIBUTION WIDTH 19.1 % (12.0-16.0); RED CELL COUNT 3.78 10/6/uL (4.7-6.1); WHITE BLOOD CELLS 7.3 10/3/uL (4.5-10.5)
[2016-10-30 04:40] LABS: MANUAL DIFF NO %
[2016-10-30 04:44] LABS: PROTIME (NOT ORD) 22.2 SEC (12.0-14.5)
[2016-10-30 04:49] LABS: ALBUMIN 1.6 G/DL (3.5-5.0); BUN (BLOOD UREA NITROGEN) 61 MG/DL (6-23); CALCIUM, SERUM 8.3 MG/DL (8.5-10.4); CHLORIDE, SERUM 108 MMOL/L (96-112); CO2 (CARBON DIOXIDE) 26 MMOL/L (24-34); CREATININE 1.53 MG/DL (0.70-1.30); GFR AFRICAN AMERICAN 56 ML/MIN (>=60); GFR NON AFRICAN AMERICAN 48 ML/MIN (>=60); PHOSPHORUS, SERUM 3.4 MG/DL (2.5-4.5); POTASSIUM, SERUM 4.2 MMOL/L (3.5-5.3); SODIUM, SERUM 143 MMOL/L (135-148)
[2016-10-30 04:51] LABS: GLUCOSE, SERUM 157 MG/DL (60-99)
[2016-11-05] MEDS ORDERED: TRAZ50 PO (17:24)
[2016-11-05] MEDS ORDERED: LIPITOR40 PO (17:24)
[2016-11-05] MEDS ORDERED: COREG3 PO (17:25)
[2016-11-05] MEDS ORDERED: ZINC220C PO (17:25)
[2016-11-05] MEDS ORDERED: VITC500 PO (17:26)
[2016-11-05] MEDS ORDERED: ASAB PO (17:26)
[2016-11-05] MEDS ORDERED: MULTIVIT/MIN PO (17:27)
[2016-11-05] MEDS ORDERED: BUM2 PO (17:27)
[2016-11-05] MEDS ORDERED: FOLIC PO (17:27)
[2016-11-05] MEDS ORDERED: HUMALOG SC ×2 (17:29)
[2016-11-05] MEDS ORDERED: C5 PO (17:30)
[2016-11-05] MEDS ORDERED: TOUJEO SC (17:30)
[2016-11-05] MEDS ORDERED: OXYCOD PO (17:31)
[2016-11-05] MEDS ORDERED: ATV.5 PO (17:32)
[2016-11-05] MEDS ORDERED: DUONEB INH (17:32)
== END 2016-10-30 17:20 | DRG 853 ==
LOC: 7NO 12:29 → IMCU 14:09 → 6NO 10-18 18:46
PROVIDERS: Hospitalist; Internal Medicine Interventional Cardiology; Nurse Practitioner Family; Surgery
PROC: 02HV33Z Insertion of Infusion Device into Superior Vena Cava, Percutaneous Approach (ICD-10-PCS; 2016-10-17)
PROC: 4A02X4A Measurement of Cardiac Electrical Activity, Guidance, External Approach (ICD-10-PCS; 2016-10-17)
PROC: B41D1ZZ Fluoroscopy of Aorta and Bilateral Lower Extremity Arteries using Low Osmolar Contrast (ICD-10-PCS; principal; 2016-10-20 15:15)
PROC: 047K3ZZ Dilation of Right Femoral Artery, Percutaneous Approach (ICD-10-PCS; 2016-10-20 15:15)
PROC: 047P3ZZ Dilation of Right Anterior Tibial Artery, Percutaneous Approach (ICD-10-PCS; 2016-10-20 15:15)
PROC: 047M3ZZ Dilation of Right Popliteal Artery, Percutaneous Approach (ICD-10-PCS; 2016-10-20 15:15)
PROC: 047T3ZZ Dilation of Right Peroneal Artery, Percutaneous Approach (ICD-10-PCS; 2016-10-20 15:15)
DX: A41.9 Sepsis, unspecified organism (principal); I50.23 Acute on chronic systolic (congestive) heart failure; E11.52 Type 2 diabetes mellitus with diabetic peripheral angiopathy with gangrene; I42.9 Cardiomyopathy, unspecified; N17.9 Acute kidney failure, unspecified; L03.115 Cellulitis of right lower limb; E11.22 Type 2 diabetes mellitus with diabetic chronic kidney disease; N18.3 Chronic kidney disease, stage 3 (moderate); L03.116 Cellulitis of left lower limb; E11.65 Type 2 diabetes mellitus with hyperglycemia; E11.42 Type 2 diabetes mellitus with diabetic polyneuropathy; I48.2 Chronic atrial fibrillation; I48.0 Paroxysmal atrial fibrillation; I25.5 Ischemic cardiomyopathy; I25.10 Atherosclerotic heart disease of native coronary artery without angina pectoris; B96.5 Pseudomonas (aeruginosa) (mallei) (pseudomallei) as the cause of diseases classified elsewhere; L29.9 Pruritus, unspecified; I27.2 Other secondary pulmonary hypertension; I73.9 Peripheral vascular disease, unspecified; R65.20 Severe sepsis without septic shock; J44.9 Chronic obstructive pulmonary disease, unspecified; G89.29 Other chronic pain; Z79.82 Long term (current) use of aspirin; Z79.4 Long term (current) use of insulin; Z95.810 Presence of automatic (implantable) cardiac defibrillator; Z95.1 Presence of aortocoronary bypass graft; Z91.14 Patient's other noncompliance with medication regimen; Z79.01 Long term (current) use of anticoagulants; R11.0 Nausea; T40.2X5A Adverse effect of other opioids, initial encounter; Y92.230 Patient room in hospital as the place of occurrence of the external cause; Z86.718 Personal history of other venous thrombosis and embolism; Z87.891 Personal history of nicotine dependence
CPT/HCPCS: 36415; 36569; 37224; 37228; 37232; 71010; 71020; 73700-RT; 75625; 75710; 75774; 80048; 80053; 80069; 80076; 80202; 82150; 82330; 82570; 82962; 83605; 83690; 83735; 83880; 84100; 84132; 84145; 84156; 84300; 84540; 85025; 85610; 85730; 86850; 86900; 86901; 87040; 87070; 87077; 87186; 87205; 87641; 93005; 93925; 93971; 96365; 97161-GP; 97165-GO; 99285; A9270-GY; C1725; C1751; C1769; C1887; C1894; C8929; J0692; J1170; J1940; J2250; J2370; J2405; J2550; J3010; J3370; J3475; P9047; Q9957; Q9966